=== PATIENT | female | born 1975 | race Asian ===

== ENCOUNTER → 2023-08-02 19:17 | Outpatient (REF) | payer OTHER, SELFPAY | LOC: WDC 19:17 | PROVIDERS: ATTENDING PHYSICIAN Family Medicine | DX: Z12.31 Encounter for screening mammogram for malignant neoplasm of breast (principal) | CPT/HCPCS: 77063; 77067 ==

== ENCOUNTER → 2024-06-26 14:13 | Outpatient (REF) | payer OTHER, SELFPAY | LOC: HWRAD 14:13 | PROVIDERS: ATTENDING PHYSICIAN Family Medicine | DX: M54.41 Lumbago with sciatica, right side (principal); M54.2 Cervicalgia; G89.29 Other chronic pain | CPT/HCPCS: 72052; 72110 ==